=== PATIENT | male | born 1960 | race African-American/Black ===

== ENCOUNTER 2021-12-09 21:01 | Inpatient (IN) | payer MEDICARE, OTHER ==
[~2021-12-09] VITALS: Ht 177.8 cm; Wt 88.5 kg
--- NOTE | 2021-12-09 21:31 | NUR ---
Patient BIB R93 for c/o of leg pain. Patient was just discharge [facility] from [facility] for left BKA.
[2021-12-09] MEDS ORDERED: HYDROMORPHONE 1 MG/1 ML DISP.SYRIN IV ONE (22:00)
[2021-12-09] MEDS ORDERED: ONDANSETRON 4 MG/2 ML VIAL IV ONE (22:00)
[2021-12-09] MEDS ORDERED: HYDROMORPHONE 1 MG/1 ML DISP.SYRIN ONE (22:23)
[2021-12-09] MEDS ORDERED: ONDANSETRON 4 MG/2 ML VIAL ONE (22:23)
[2021-12-09 22:25] LABS: HEMATOCRIT 26.8 % (36.7-47.1); MEAN CORPUSCULAR HEMOGLOBIN 30.1 uug (23.8-33.4); MEAN CORPUSCULAR VOLUME 95.6 fL (73.0-96.2); PLATELET COUNT (AUTO) 238 K/uL (152-348)
[2021-12-09 22:28] LABS: CARBON DIOXIDE 29 mmol/L (21-32); CHLORIDE 98 mmol/L (98-107); CREATININE 4.4 mg/dL (0.6-1.3); GLUCOSE 146 mg/dL (74-106); POTASSIUM 4.3 mmol/L (3.5-5.1); UREA NITROGEN, BLOOD 28 mg/dL (7-18)
[2021-12-09 22:43] LABS: ALANINE AMINOTRANSFERASE 8 U/L (16-63); ALKALINE PHOSPHATASE 155 U/L (50-136); ASPARTATE AMINOTRANSFERASE 11 U/L (15-37); BILIRUBIN,DIRECT 0.3 mg/dL (0.0-0.2); BILIRUBIN,TOTAL 0.5 mg/dL (0.2-1.0); TOTAL PROTEIN, SERUM 7.2 g/dL (6.4-8.2)
--- NOTE | 2021-12-09 22:46 | NUR ---
Back from CT and Xray.
--- NOTE | 2021-12-10 00:07 | NUR ---
[facility] panel call placed, spoke to Yary, she stated she will get a hold of ANDREA Vega for admitting.
--- NOTE | 2021-12-10 00:37 | NUR ---
PATIENT WAS ASKED SEVERAL TIME ABOUT HIS HOME MEDICATIONS BUT IS UNABLE TO RECALL AT THIS TIME.
[2021-12-10] MEDS ORDERED: HYDROMORPHONE 1 MG/1 ML DISP.SYRIN IV ONE (01:00)
[2021-12-10] MEDS ORDERED: HYDROMORPHONE 1 MG/1 ML DISP.SYRIN ONE (01:14)
--- NOTE | 2021-12-10 01:30 | NUR ---
Patient was brought in to the floor via gurney. Required moderate-maximum assist in mobility/transfer from gurney to bed. AAOx3. Denies any pain/discomforts at this time. In no apparent distress. Routine admission care done. Plan of care initiated.
--- NOTE | 2021-12-10 01:45 | NUR ---
Pt. admitted to Med/Surg unit, room 330 under care of ANDREA Vega. Belongs List completed.
[2021-12-10] MEDS ORDERED: MAGNESIUM HYDROXIDE 30 ML LIQUID UDC PO PRN (02:00)
[2021-12-10] MEDS ORDERED: ONDANSETRON 4 MG/2 ML VIAL IV PRN (02:00)
[2021-12-10] MEDS ORDERED: REMEDY ESSENTIAL ZINC PASTE 113 GM TP PRN (02:00)
[2021-12-10] MEDS ORDERED: IV NS 1000 ML 1,000 ML IV PRN (02:00)
[2021-12-10] MEDS ORDERED: ACETAMINOPHEN 325 MG TABLET PO PRN (02:00)
[2021-12-10 02:36] VITALS: BP 98/46
[2021-12-10] MEDS: VANCOMYCIN IV 1,000 MG in IV DEXTROSE 5% 250 ML IV SCH ×2 (03:00→04:30)
[2021-12-10] MEDS: HYDROCODONE/APAP 5-325MG TABLET PO PRN ×2 (03:26→17:36)
[2021-12-10] MEDS ORDERED: CEFEPIME HCL 1 G in IV DEXTROSE 5% 50 ML IV SCH (06:00)
[2021-12-10 06:27] LABS: HEMATOCRIT 28.1 % (36.7-47.1); MEAN CORPUSCULAR HEMOGLOBIN 29.7 uug (23.8-33.4); MEAN CORPUSCULAR VOLUME 97.6 fL (73.0-96.2); PLATELET COUNT (AUTO) 233 K/uL (152-348)
[2021-12-10 06:30] VITALS: BP 97/46
--- NOTE | 2021-12-10 06:35 | NUR ---
TEXT DR. WALKER FOR MRI APPROVAL.
--- NOTE | 2021-12-10 06:36 | NUR ---
MRI APPROVED, NOTIFIED MRI ([facility]) VIA TEXT. I WILL LET THE FLOOR KNOW WHEN TO MAKE TRANSPORTATION ARRANGEMENTS.
[2021-12-10] MEDS: PANTOPRAZOLE SODIUM 40 MG TABLET.DR PO SCH (06:55)
[2021-12-10 07:04] LABS: CREATININE 4.8 mg/dL (0.6-1.3); POTASSIUM 4.5 mmol/L (3.5-5.1)
[2021-12-10 07:11] LABS: BILIRUBIN,TOTAL 0.5 mg/dL (0.2-1.0); MAGNESIUM 2.1 mg/dL (1.8-2.4); PHOSPHOROUS 4.7 mg/dL (2.5-4.9); TOTAL PROTEIN, SERUM 7.3 g/dL (6.4-8.2)
--- NOTE | 2021-12-10 07:35 | NUR ---
Vanco not provided d/t order to wait for Pharmacy to dose. Maxepine not given d/t order for pending pharmacy review. Spoke to Pharmacist Raghavendra, stated he will reschedule.
[2021-12-10] MEDS ORDERED: VANCOMYCIN IV 1,250 MG in IV DEXTROSE 5% 250 ML IV ONE (08:00)
[2021-12-10] MEDS: CEFEPIME HCL 1 G in IV DEXTROSE 5% 50 ML IV SCH (08:22)
[2021-12-10] MEDS: HEPARIN SODIUM,PORCINE 5,000 UNITS/ML VIAL SQ SCH ×2 (08:51→21:35)
[2021-12-10] MEDS: HYDROMORPHONE 1 MG/1 ML DISP.SYRIN IV PRN ×2 (09:38→21:34)
[2021-12-10] MEDS ORDERED: VANCOMYCIN IV 500 MG in IV DEXTROSE 5% 100 ML IV PRN (10:30)
[2021-12-10] MEDS ORDERED: LORAZEPAM 2 MG/1 ML VIAL IV ONE (11:15)
--- NOTE | 2021-12-10 11:31 | NUR ---
pt went for mri via ambulances in stable condition
[2021-12-10 11:55] VITALS: BP 138/67
--- NOTE | 2021-12-10 13:00 | NUR ---
pt received back from [facility] in stable condition they are unravel to do the mri because of pt was unravel to lay down made aware
[2021-12-10 16:25] VITALS: BP 126/65
[2021-12-10 20:00] VITALS: BP 133/50
[2021-12-11 02:32] VITALS: BP 122/72
[2021-12-11] MEDS: HYDROMORPHONE 1 MG/1 ML DISP.SYRIN IV PRN ×5 (02:41→20:53)
[2021-12-11 04:00] VITALS: BP 151/60
[2021-12-11 06:53] VITALS: BP 135/51
[2021-12-11] MEDS: PANTOPRAZOLE SODIUM 40 MG TABLET.DR PO SCH (06:56)
--- NOTE | 2021-12-11 07:34 | NUR ---
PIV 20 cassie on right wrist infiltrated, Dilaudid at 0650 was not given. RN tried twice to insert new line, no success. Patient does not have any PIV at the moment. Report will be provided to AM shift.
[2021-12-11] MEDS: HEPARIN SODIUM,PORCINE 5,000 UNITS/ML VIAL SQ SCH ×2 (09:50→21:26)
[2021-12-11] MEDS: CEFEPIME HCL 1 G in IV DEXTROSE 5% 50 ML IV SCH (10:46)
--- NOTE | 2021-12-11 11:00 | NUR ---
Obtained order for midline insertion due to multiple pIV attempts. Pt has small veins, was able to have wrist 22g inserted but it may not last very long. Pt veins prone to blowing. Midline nurse came in and stated unable to insert midline due to pt having fistula in bilateral arms no matter if one is not being used or does not work. Right fistula does not work, Left fistula working and left chest wall permacath present for dialysis. midline was not inserted.
--- NOTE | 2021-12-11 11:13 | NUR ---
PAGED DR CAST FOR NEPHRO CONSULT
--- NOTE | 2021-12-11 11:20 | NUR ---
SPOKE TO DR CAST AND MADE AWARE ABOUT NEPHRO CONSULT
--- NOTE | 2021-12-11 11:36 | NUR ---
MIDLINE NOT INSERTED, PER TECH PATIENT IS NOT A CANDIDATE SINCE PATIENT HAS A OLD FISTULA FOR DILYSIS ON RIGHT ARM AND WORKING FISTULA ON LEFT ARM.
[2021-12-11 11:57] VITALS: BP 154/67
--- NOTE | 2021-12-11 12:16 | NUR ---
WOUND CARE CONSULT: PT PRESENTS WITH LEFT ABOVE KNEE AMPUTATION WITH DRESSING, LEFT GROIN SURGICAL DRESSING, LEFT BUTTOCK DRY WOUND WITH TENDERNESS AND INDURATION, LEFT THIGH STAGE 3 PRESSURE ULCER, ALL PRESENT ON ADMISSION. SURGICAL CONSULT CALLED TO DR KENYON. PT REFUSED TO HAVE STUMP DRESSING AND LEFT GROIN DRESSING REMOVED. PT IS ABLE TO ASSIST WITH REPOSITIONING IN BED BUT IS UNCOOPERATIVE AT TIMES. MD IN AGREEMENT WITH PLAN OF CARE.
--- NOTE | 2021-12-11 13:14 | NUR ---
Pt is a/o x 3, confused at times. Pt was taken to get MRI at [facility] at 1235. Wound consult completed. prior to transfer. Pt has new IV access on right wrist.
--- NOTE | 2021-12-11 14:11 | NUR ---
Pt is back from MRI. MRI was unsuccessful. Pt was not cooperative with procedure and refused to do again. Pt is receiving hemodialysis. Consent placed in chart.
[2021-12-11 16:32] VITALS: BP 126/62
[2021-12-11] MEDS: HYDROCODONE/APAP 5-325MG TABLET PO PRN ×2 (16:49→23:39)
--- NOTE | 2021-12-11 17:17 | NUR ---
Hemodialysis ended. Vitals 128/72 HR 89, Temp 97.8, rr16. 2L removed via left chest perma cath.
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
[2021-12-11] MEDS ORDERED: ASPI81TA31 PO (19:37)
[2021-12-11] MEDS ORDERED: CARV6.252 PO (19:37)
[2021-12-11] MEDS ORDERED: SEVE800T8 PO (19:37)
[2021-12-11] MEDS ORDERED: PANT40TA49 PO (19:37)
[2021-12-11] MEDS ORDERED: OXYC30TA2 PO (19:37)
[2021-12-11] MEDS ORDERED: GABA-532 PO (19:37)
[2021-12-11] MEDS ORDERED: CINA30TA2 PO (19:37)
[2021-12-11] MEDS ORDERED: ONDA4TAB11 PO (19:37)
[2021-12-11] MEDS ORDERED: ATEN25TA PO (19:37)
[2021-12-11] MEDS ORDERED: DOCU100C36 PO (19:37)
[2021-12-11] MEDS ORDERED: SODI5POW2 PO (19:37)
[2021-12-11] MEDS ORDERED: CYPR4TAB44 PO (19:37)
[2021-12-11] MEDS ORDERED: NIFE-35 PO (19:37)
[2021-12-11] MEDS ORDERED: TRAZ-182 PO (19:37)
[2021-12-11] MEDS ORDERED: CALC667T6 PO (19:37)
[2021-12-11] MEDS ORDERED: ALBU8HFA4 INH (19:37)
[2021-12-11] MEDS ORDERED: METO-295 PO (19:37)
[2021-12-11] MEDS ORDERED: SIME40DR40 PO (19:37)
[2021-12-11 20:00] VITALS: BP 132/63
[2021-12-11] MEDS ORDERED: EPOETIN ALFA-EPBX 10,000 UNIT/ML VIAL SQ ONE (20:00)
--- NOTE | 2021-12-11 20:53 | NUR ---
Patient in bed alert to himself. Stated "which hotel am I At".Re-oriented to place and time.Patient screaming in pain. IV re- inserted on RT FA 20g with blood return.Dilaudid IVP given.Left AKA,amputations of the toes of his right foot ,prabhjot noted on Rt groin.No bleeding noted.Snacks provided.Perma cath on left upper chest with dressing in place.Safety measures in place.Will continue to monitor.
[2021-12-12] MEDS ORDERED: LORAZEPAM 2 MG/1 ML VIAL IV ONE (00:15)
--- NOTE | 2021-12-12 01:16 | NUR ---
Patient trying to get of bed. Agitated and restless.Re-assurance rendered.Unable to re-direct. Stacy Branham notified with new order received noted and carried out.Ativan IVP x1 given.Will continue to monitor.
[2021-12-12 04:15] VITALS: BP 106/60
[2021-12-12] MEDS: HYDROMORPHONE 1 MG/1 ML DISP.SYRIN IV PRN ×2 (05:46→10:39)
[2021-12-12] MEDS: PANTOPRAZOLE SODIUM 40 MG TABLET.DR PO SCH (06:01)
--- NOTE | 2021-12-12 06:05 | NUR ---
Patient awake and confused. Unable to follow commands.Started screaming c/o pain and extremely agitated, getting out of bed .High risk for fall.Place patient to luisito-chair with 4 person assists.All needs anticipated and met accordingly. Will endorse to oncoming shift.
--- NOTE | 2021-12-12 07:30 | NUR ---
Received patient in bed confused. Pt is yelling and screaming, banging on gerichair tray table. Patient is non compliant and using foul language at staff. Safety precautions are in place. Will continue to monitor.
[2021-12-12] MEDS: CEFEPIME HCL 1 G in IV DEXTROSE 5% 50 ML IV SCH (08:27)
[2021-12-12] MEDS: HEPARIN SODIUM,PORCINE 5,000 UNITS/ML VIAL SQ SCH ×2 (08:30→21:21)
[2021-12-12 10:57] VITALS: BP 146/68
[2021-12-12 11:08] LABS: HEPATITIS B SURFACE AG Negative (Negative)
[2021-12-12] MEDS: NICOTINE 14 MG/24HR PATCH TD SCH (12:56)
[2021-12-12] MEDS: HYDROMORPHONE 1 MG/1 ML DISP.SYRIN IM PRN ×2 (15:00→21:20)
[2021-12-12 15:12] VITALS: BP 165/78
--- NOTE | 2021-12-12 16:30 | NUR ---
BRODY Hartman at bedside with doing bebridement. Pt tolerated procedure well.
[2021-12-12] MEDS ORDERED: SILVER NITRATE APPLICATOR STICK EACH TP ONE (17:00)
[2021-12-12] MEDS ORDERED: LIDOCAINE 1%-EPI 1:200,000 MPF 30 ML VIAL IJ ONE (17:00)
--- NOTE | 2021-12-12 17:32 | NUR ---
BRODY Hartman will use for a procedure with the patient on Tuesday. Med placed in patient's cassette.
--- NOTE | 2021-12-12 18:36 | NUR ---
Came out of pt room and other nurse states patient was found on the floor by CATHOLIC PRIEST. Pick patient up off the floor and placed in bed. Assessment shows pt has no sign of injury. Moved patient closer to the nurses station, notified MD and placed order for restraint.
--- NOTE | 2021-12-12 18:44 | NUR ---
Pt has been combative and non compliant throughout shift. Patient keep stating he wants to go home by is confused and unable to make that decision at this time. He stated that his name is KAMAR and he is taking to people that are in their and thinks others are watching home. Will endorse to oncoming nurse.
[2021-12-12 20:00] VITALS: BP 110/50
--- NOTE | 2021-12-12 21:20 | NUR ---
Dilaudid 1mg prn given to pt for pain on his left stump. Pt tolerated it well.
--- NOTE | 2021-12-12 22:30 | NUR ---
Pt dilaudid effective. Pt said it help him but still feel some little pain. Safety and comfort provided. Will continue to monitor.
--- NOTE | 2021-12-12 23:30 | NUR ---
Pt in no acute distress. Vital signs within normal limit. hands off report given to Yajaira CONNELL.
[2021-12-13] MEDS: SODIUM HYPOCHLORITE 0.25% (HALF STRENGTH) 480 ML BOTTLE TOP SCH ×2 (00:15→09:45)
[2021-12-13] MEDS: THERAHONEY GEL 1.5 OZ TUBE TOP SCH ×2 (00:16→09:45)
[2021-12-13] MEDS: HYDROMORPHONE 1 MG/1 ML DISP.SYRIN IM PRN ×3 (02:13→22:12)
--- NOTE | 2021-12-13 02:14 | NUR ---
MEDICATED FOR LEFT RESIDUAL LIMB PAIN. REPOSITION FOR COMFORT. NEEDS ATTENDED TO, KEPT WARM AND CLEAN.
[2021-12-13 04:03] VITALS: BP 115/50
--- NOTE | 2021-12-13 06:41 | NUR ---
SLEPT ON AND OFF, REFUSED BLOOD DRAW,AND MORNING MED.ENDORSED TO AM NURSE IN FAIR CONDITION.
[2021-12-13] MEDS: PANTOPRAZOLE SODIUM 40 MG TABLET.DR PO SCH (07:00)
--- NOTE | 2021-12-13 07:45 | NUR ---
Received in sitting in bed awake and verbally responsive. Denies sob. Has his gown off and refusing to put it on. Left chest permacath with dry dressing intact. No acute distress. Bed low and locked siderails up x2. Call light and personal belongings in reach. Will cont to monitor.
[2021-12-13] MEDS: HEPARIN SODIUM,PORCINE 5,000 UNITS/ML VIAL SQ SCH ×2 (08:34→21:21)
[2021-12-13] MEDS: NICOTINE 14 MG/24HR PATCH TD SCH (08:34)
--- NOTE | 2021-12-13 08:45 | NUR ---
Agitated and states he wants to be discharged. Informed risks of not getting tx and benefit of cont with plan of care and pt somewhat calmed down and continued eating. Refused to be inserted iv at this time. will try again later.
[2021-12-13] MEDS: CEFEPIME HCL 1 G in IV DEXTROSE 5% 50 ML IV SCH (10:13)
--- NOTE | 2021-12-13 10:32 | NUR ---
charge nurse able to reinsert 22g iv on lfa tolerated. iv medication administered as ordered.
[2021-12-13] MEDS: HYDROCODONE/APAP 5-325MG TABLET PO PRN ×3 (11:24→19:44)
[2021-12-13 12:57] VITALS: BP 158/78
[2021-12-13 16:17] VITALS: BP 155/70
--- NOTE | 2021-12-13 16:30 | NUR ---
baton twirler unable to draw blood the first time and then pt refused a second try. he did agree to have her come back later to try again. endorsed.
--- NOTE | 2021-12-13 18:00 | NUR ---
Dr. Barrett notified that patient's meds need to be reconciled. pharmacy also aware.
--- NOTE | 2021-12-13 18:30 | NUR ---
pt resting. no pain or distress noted. had pizza delivered earlier so didn't eat much dinner. appears comfortable. needs attended.
[2021-12-13 20:00] VITALS: BP 145/71
--- NOTE | 2021-12-13 20:00 | NUR ---
Patient refused vital signs taken, yells and screams, cont on pain management. Patient left AKA with prabhjot, draining with serosangeneous in small amount, kept it clean and dry. Patient has episode of yellings and screaming, gave pain meds as soon as possible, when its due, cont to monitor.
[2021-12-13] MEDS ORDERED: SIMETHICONE 40 MG/0.6 ML, 30ML BOTTLE PO SCH (20:45)
[2021-12-13] MEDS ORDERED: ALBUTEROL SULFATE 8 GM HFA.AER.AD IH PRN (20:45)
[2021-12-14] MEDS: HYDROCODONE/APAP 5-325MG TABLET PO PRN ×2 (00:30→13:26)
[2021-12-14] MEDS: HYDROMORPHONE 1 MG/1 ML DISP.SYRIN IM PRN ×5 (02:15→20:06)
[2021-12-14 04:44] VITALS: BP 160/89
[2021-12-14] MEDS: PANTOPRAZOLE SODIUM 40 MG TABLET.DR PO SCH (06:05)
[2021-12-14] MEDS: CARVEDILOL 6.25 MG TABLET PO SCH ×2 (06:06→16:10)
[2021-12-14] MEDS ORDERED: PANTOPRAZOLE SODIUM 40 MG TABLET.DR PO SCH (07:00)
[2021-12-14 07:23] LABS: POTASSIUM 5.4 mmol/L (3.5-5.1); VANCOMYCIN,RANDOM 19.7 ug/mL (18.0-26.0)
[2021-12-14 07:25] LABS: CREATININE 7.5 mg/dL (0.6-1.3)
--- NOTE | 2021-12-14 07:26 | NUR ---
SEEN AND EXAMINED BY DR. GERARD WITH NEW ATIVAN ORDERS FOR MRI PROCEDURE NOTED.
[2021-12-14] MEDS ORDERED: LORAZEPAM 2 MG/1 ML VIAL IV ONE (07:30)
[2021-12-14] MEDS ORDERED: LORAZEPAM 2 MG/1 ML VIAL IV PRN (07:30)
[2021-12-14 07:40] LABS: HEMATOCRIT 21.7 % (36.7-47.1); MEAN CORPUSCULAR HEMOGLOBIN 30.9 uug (23.8-33.4); MEAN CORPUSCULAR VOLUME 95.7 fL (73.0-96.2); PLATELET COUNT (AUTO) 197 K/uL (152-348)
[2021-12-14] MEDS: SEVELAMER CARBONATE 800 MG TABLET PO SCH ×3 (08:49→16:11)
[2021-12-14] MEDS: ASPIRIN 81 MG TAB.CHEW PO SCH (08:49)
[2021-12-14] MEDS: GABAPENTIN 100 MG CAPSULE PO SCH ×3 (08:49→16:11)
[2021-12-14] MEDS: NICOTINE 14 MG/24HR PATCH TD SCH (08:49)
[2021-12-14] MEDS: CINACALCET HCL 30 MG TABLET PO SCH ×3 (08:50→18:38)
[2021-12-14] MEDS: HEPARIN SODIUM,PORCINE 5,000 UNITS/ML VIAL SQ SCH ×2 (08:50→20:07)
[2021-12-14] MEDS: METOCLOPRAMIDE HCL 10 MG TABLET PO SCH ×3 (08:50→16:11)
[2021-12-14] MEDS: CALCIUM ACETATE 667 MG CAP/TAB PO SCH ×3 (08:50→17:08)
[2021-12-14] MEDS: DOCUSATE SODIUM 100 MG CAPSULE PO SCH (08:52)
[2021-12-14] MEDS: CEFEPIME HCL 1 G in IV DEXTROSE 5% 50 ML IV SCH (09:00)
[2021-12-14] MEDS ORDERED: Medication Not On Formulary EA (Oxycodone Hcl 1 TAB) PO SCH (09:00)
[2021-12-14] MEDS: NIFEdipine XL 30 MG TABSR PO SCH (09:00)
[2021-12-14] MEDS: ATENOLOL 25 MG TABLET PO SCH (09:00)
[2021-12-14] MEDS: THERAHONEY GEL 1.5 OZ TUBE TOP SCH (09:02)
[2021-12-14] MEDS: SODIUM HYPOCHLORITE 0.25% (HALF STRENGTH) 480 ML BOTTLE TOP SCH (09:02)
--- NOTE | 2021-12-14 09:44 | NUR ---
bp meds held this morning patient is having dialysis today bp 126/51 hr 79. aware
--- NOTE | 2021-12-14 10:42 | NUR ---
received call for critical lab hgb 7.[address] zendejas with order to repeat hgb in 4 hrs.
[2021-12-14] MEDS ORDERED: SIME80TA16 PO (10:43)
[2021-12-14] MEDS ORDERED: ALBUTEROL SULFATE 2.5 MG/3 ML NEBU NEB PRN (11:00)
[2021-12-14] MEDS ORDERED: SIMETHICONE 80 MG TAB.CHEW PO PRN (11:00)
[2021-12-14 11:38] VITALS: BP 118/65
--- NOTE | 2021-12-14 11:43 | NUR ---
DIALYSIS NURSE HERE TO DIALYZE THE PATIENT.
--- NOTE | 2021-12-14 12:18 | NUR ---
pt still thinking whether he wants to do the mri. dr. zendejas explained risks/benefits to the patient this morning. still doesn't want at this time.
[2021-12-14 14:37] LABS: HEMATOCRIT 24.3 % (36.7-47.1)
--- NOTE | 2021-12-14 14:56 | NUR ---
patient finished hemodialysis session output 2 liters. no acute distress.
--- NOTE | 2021-12-14 15:17 | NUR ---
spoke with noman and updated on condition no complaints and was appreciative.
[2021-12-14] MEDS ORDERED: VANCOMYCIN IV 500 MG in IV DEXTROSE 5% 100 ML IV ONE (16:00)
[2021-12-14 16:30] VITALS: BP 107/88
[2021-12-14] MEDS: TRAZODONE 50 MG TABLET PO SCH (18:38)
--- NOTE | 2021-12-14 18:49 | NUR ---
awake and eating. no acute distress. safety and comfort provided. needs attended.
--- NOTE | 2021-12-14 19:30 | NUR ---
Patient alert oriented, no sob no chest pain, cont on pain management on left BKA amputation wound. Patient BKA with prabhjot with serosangenous drainage in small amount, site clean clean and dry. Patient has no pulling of tubes, climbs oob now, pretty much aware of safety issue, no mittens in place. Patient close to station for close monitoring and for faster service.
[2021-12-14 20:03] VITALS: BP 123/54
[2021-12-15] MEDS: HYDROMORPHONE 1 MG/1 ML DISP.SYRIN IM PRN ×5 (00:17→22:38)
[2021-12-15 04:03] VITALS: BP 125/60
[2021-12-15] MEDS: PANTOPRAZOLE SODIUM 40 MG TABLET.DR PO SCH (05:35)
[2021-12-15 06:42] LABS: HEMATOCRIT 22.7 % (36.7-47.1); MEAN CORPUSCULAR HEMOGLOBIN 30.5 uug (23.8-33.4); MEAN CORPUSCULAR VOLUME 95.5 fL (73.0-96.2); PLATELET COUNT (AUTO) 204 K/uL (152-348)
--- NOTE | 2021-12-15 07:30 | NUR ---
Received patient in bed awake, alert and oriented times 4. No sign of distress noted at this time. Pt is on fall precautions. Safety precaution in place. Will continue to monitor.
--- NOTE | 2021-12-15 07:51 | NUR ---
Patient hgh 7.2, notify DR Rodriguez, endorse to next shift.
[2021-12-15] MEDS ORDERED: EPOETIN ALFA 20,000 UNIT/ML ML SQ ONE (08:45)
[2021-12-15] MEDS ORDERED: EPOETIN ALFA-EPBX 20,000 UNIT/ML VIAL SQ ONE (09:15)
[2021-12-15] MEDS: ASPIRIN 81 MG TAB.CHEW PO SCH (09:27)
[2021-12-15] MEDS: METOCLOPRAMIDE HCL 10 MG TABLET PO SCH ×3 (09:28→17:50)
[2021-12-15] MEDS: CALCIUM ACETATE 667 MG CAP/TAB PO SCH ×3 (09:28→17:50)
[2021-12-15] MEDS: SEVELAMER CARBONATE 800 MG TABLET PO SCH ×3 (09:28→17:50)
[2021-12-15] MEDS: GABAPENTIN 100 MG CAPSULE PO SCH ×3 (09:29→17:50)
[2021-12-15] MEDS: CEFEPIME HCL 1 G in IV DEXTROSE 5% 50 ML IV SCH (09:29)
[2021-12-15] MEDS: DOCUSATE SODIUM 100 MG CAPSULE PO SCH (09:29)
[2021-12-15] MEDS: NICOTINE 14 MG/24HR PATCH TD SCH (09:33)
[2021-12-15] MEDS: ATENOLOL 25 MG TABLET PO SCH (09:33)
[2021-12-15] MEDS: NIFEdipine XL 30 MG TABSR PO SCH (09:33)
[2021-12-15] MEDS: CARVEDILOL 6.25 MG TABLET PO SCH ×2 (09:33→17:55)
[2021-12-15] MEDS: SODIUM HYPOCHLORITE 0.25% (HALF STRENGTH) 480 ML BOTTLE TOP SCH (09:34)
[2021-12-15] MEDS: THERAHONEY GEL 1.5 OZ TUBE TOP SCH (09:34)
[2021-12-15] MEDS: CINACALCET HCL 30 MG TABLET PO SCH ×3 (09:47→17:50)
[2021-12-15 11:32] VITALS: BP 122/61
[2021-12-15 15:40] VITALS: BP 92/50
[2021-12-15] MEDS ORDERED: LORAZEPAM 2 MG/1 ML VIAL IV PRN (16:00)
--- NOTE | 2021-12-15 17:00 | NUR ---
MRI scheduled for Saturday 12/16 at 0900 at [facility]. Pickup is scheduled for 0830
[2021-12-15] MEDS: TRAZODONE 50 MG TABLET PO SCH (17:50)
[2021-12-15] MEDS: ARGININE/GLUTAMINE/CALCIUM BMB 1 EACH POWD.PACK PO SCH (17:51)
[2021-12-16] VITALS (7 sets, daily range): BP systolic 87–122; BP diastolic 53–88
[2021-12-16] MEDS: HYDROMORPHONE 1 MG/1 ML DISP.SYRIN IM PRN ×3 (03:09→22:41)
[2021-12-16] MEDS: PANTOPRAZOLE SODIUM 40 MG TABLET.DR PO SCH (06:01)
--- NOTE | 2021-12-16 06:37 | NUR ---
Patient alert oriented, no sob no chest pain, cont on pain management S/P left BKA, tx done with small serosangeneous drainage, no odor, left chest perma cath dressing intact, anuric and had BM last night, call light within reach.
[2021-12-16 07:21] LABS: HEMATOCRIT 21.1 % (36.7-47.1); MEAN CORPUSCULAR HEMOGLOBIN 30.9 uug (23.8-33.4); MEAN CORPUSCULAR VOLUME 96.6 fL (73.0-96.2); PLATELET COUNT (AUTO) 200 K/uL (152-348)
[2021-12-16 07:25] LABS: BILIRUBIN,TOTAL 0.4 mg/dL (0.2-1.0); CREATININE 7.1 mg/dL (0.6-1.3); PHOSPHOROUS 3.2 mg/dL (2.5-4.9); POTASSIUM 5.2 mmol/L (3.5-5.1); TOTAL PROTEIN, SERUM 6.7 g/dL (6.4-8.2)
--- NOTE | 2021-12-16 07:30 | NUR ---
RECEIVED SITTING IN BED AWAKE AND VERBALLY RESPONSIVE IN SOMEWHAT PLEASANT MOOD. DENIES SOB OR PAIN. NO SIGNS OF INFILTRATION ON IV SITE. SAFETY AND COMFORT MAINTAINED. CALL LIGHT IN REACH. PT ASHLEE SNOWDEN WILL BE PICKED UP 0930 FOR MRI AT [facility].
[2021-12-16] MEDS: CEFEPIME HCL 1 G in IV DEXTROSE 5% 50 ML IV SCH (08:31)
[2021-12-16] MEDS: ASPIRIN 81 MG TAB.CHEW PO SCH (08:32)
[2021-12-16] MEDS: GABAPENTIN 100 MG CAPSULE PO SCH ×3 (08:32→17:25)
[2021-12-16] MEDS: CINACALCET HCL 30 MG TABLET PO SCH ×3 (08:32→17:25)
[2021-12-16] MEDS: SEVELAMER CARBONATE 800 MG TABLET PO SCH ×3 (08:32→17:25)
[2021-12-16] MEDS: CALCIUM ACETATE 667 MG CAP/TAB PO SCH ×3 (08:32→17:25)
[2021-12-16] MEDS: DOCUSATE SODIUM 100 MG CAPSULE PO SCH (08:33)
[2021-12-16] MEDS: ARGININE/GLUTAMINE/CALCIUM BMB 1 EACH POWD.PACK PO SCH ×2 (08:33→17:00)
[2021-12-16] MEDS: NICOTINE 14 MG/24HR PATCH TD SCH (08:34)
[2021-12-16] MEDS: ATENOLOL 25 MG TABLET PO SCH (08:34)
[2021-12-16] MEDS: METOCLOPRAMIDE HCL 10 MG TABLET PO SCH ×3 (08:34→17:00)
[2021-12-16] MEDS: CARVEDILOL 6.25 MG TABLET PO SCH ×2 (08:34→17:00)
[2021-12-16] MEDS: NIFEdipine XL 30 MG TABSR PO SCH (08:34)
[2021-12-16] MEDS: SODIUM HYPOCHLORITE 0.25% (HALF STRENGTH) 480 ML BOTTLE TOP SCH (08:35)
[2021-12-16] MEDS: THERAHONEY GEL 1.5 OZ TUBE TOP SCH (08:35)
[2021-12-16] MEDS ORDERED: LORAZEPAM 2 MG/1 ML VIAL IV ONE (09:15)
--- NOTE | 2021-12-16 09:44 | NUR ---
[facility] HERE TO CLERK CARRIER THE PATIENT FOR SCHEDULED MRI AT [facility]. REPORT GIVEN. ATIVAN 0.5MG GIVEN ORDERED. NO ACUTE DISTRESS.
--- NOTE | 2021-12-16 10:33 | NUR ---
RECEIVED ORDER FROM DR. REYNOLDS TO GIVE 1 UNIT PRBC
--- NOTE | 2021-12-16 12:30 | NUR ---
CAME BACK VIA GURNEY FROM SCHEDULED MRI ASLEEP NO SOB NOTED. VS 93/34 HR 74 O2 SAT 94% RA.
--- NOTE | 2021-12-16 12:45 | NUR ---
MID LEVEL GAME DESIGNER HERE TO DIALYZE THE PATIENT.
--- NOTE | 2021-12-16 13:23 | NUR ---
SPOKE TO MATIAS AND UPDATED ON CONDITION. CONSENT FOR BLOOD TRANSFUSION GIVEN.
[2021-12-16] MEDS ORDERED: MIDODRINE HCL 5 MG TABLET PO PRN (13:45)
--- NOTE | 2021-12-16 15:53 | NUR ---
DIALYSIS DONE. OUTPUT 500 ML. PATIENT TOLERATED Addendum: 12/16/21 at 1601 by LISE PISANO RN PT S/P 1 PRBC TRANSFUSED ORDERED. NO ACUTE DISTRESS. NO S/SX OF ALLERGIC OR ADVERSE REACTIONS NOTED. WILL CONT TO MONITOR.
[2021-12-16] MEDS ORDERED: VANCOMYCIN IV 500 MG in IV DEXTROSE 5% 100 ML IV ONE (17:00)
[2021-12-16] MEDS: TRAZODONE 50 MG TABLET PO SCH (17:34)
--- NOTE | 2021-12-16 18:44 | NUR ---
RESTING COMFORTABLY. NO SOB OR PAIN. NEEDS ATTENDED. SAFETY MAINTAINED. CALL LIGHT IN REACH.
--- NOTE | 2021-12-17 01:00 | NUR ---
Patient is restless and c/o severe pain to left stump. Patient is alert to self and place with occasional confusion and inappropriate responses to questions. Able to redirect, refuses other pain medication besides Dilaudid IM. Patient wants to stay sitting up in bed with right leg hanging, explained it is unsafe and patient allowed this RN to help him reposition in bed.
[2021-12-17] MEDS: HYDROMORPHONE 1 MG/1 ML DISP.SYRIN IM PRN ×5 (02:49→20:53)
[2021-12-17 04:00] VITALS: BP 128/56
--- NOTE | 2021-12-17 05:25 | NUR ---
Patient slept seldom. Frequent safety checks made by staff. Pain managed by Dilaudid as needed, patient continues to refuse other pain medications. Dressing changed to left AKA stump. Noted with serosanguineous drainage. All needs attended, safety measures applied.
[2021-12-17 06:12] LABS: HEMATOCRIT 25.8 % (36.7-47.1); MEAN CORPUSCULAR HEMOGLOBIN 30.2 uug (23.8-33.4); MEAN CORPUSCULAR VOLUME 95.8 fL (73.0-96.2); PLATELET COUNT (AUTO) 188 K/uL (152-348)
[2021-12-17] MEDS: PANTOPRAZOLE SODIUM 40 MG TABLET.DR PO SCH (06:15)
[2021-12-17 06:36] LABS: CREATININE 4.7 mg/dL (0.6-1.3); MAGNESIUM 2.2 mg/dL (1.8-2.4); PHOSPHOROUS 2.9 mg/dL (2.5-4.9); POTASSIUM 4.6 mmol/L (3.5-5.1)
[2021-12-17] MEDS: CEFEPIME HCL 1 G in IV DEXTROSE 5% 50 ML IV SCH (08:31)
[2021-12-17] MEDS: ASPIRIN 81 MG TAB.CHEW PO SCH (08:41)
[2021-12-17] MEDS: CALCIUM ACETATE 667 MG CAP/TAB PO SCH ×3 (08:41→17:02)
[2021-12-17] MEDS: METOCLOPRAMIDE HCL 10 MG TABLET PO SCH ×3 (08:42→16:49)
[2021-12-17] MEDS: GABAPENTIN 100 MG CAPSULE PO SCH ×3 (08:42→16:47)
[2021-12-17] MEDS: SEVELAMER CARBONATE 800 MG TABLET PO SCH ×3 (08:43→16:46)
[2021-12-17] MEDS: DOCUSATE SODIUM 100 MG CAPSULE PO SCH (08:43)
[2021-12-17] MEDS: NIFEdipine XL 30 MG TABSR PO SCH (08:43)
[2021-12-17] MEDS: CINACALCET HCL 30 MG TABLET PO SCH ×3 (08:43→16:49)
[2021-12-17] MEDS: ATENOLOL 25 MG TABLET PO SCH (08:44)
[2021-12-17] MEDS: CARVEDILOL 6.25 MG TABLET PO SCH ×2 (08:44→16:49)
[2021-12-17] MEDS: THERAHONEY GEL 1.5 OZ TUBE TOP SCH (08:45)
[2021-12-17] MEDS: NICOTINE 14 MG/24HR PATCH TD SCH (08:45)
[2021-12-17] MEDS: ARGININE/GLUTAMINE/CALCIUM BMB 1 EACH POWD.PACK PO SCH ×2 (08:45→17:03)
[2021-12-17] MEDS: SODIUM HYPOCHLORITE 0.25% (HALF STRENGTH) 480 ML BOTTLE TOP SCH (08:46)
[2021-12-17] MEDS ORDERED: EPOETIN ALFA-EPBX 10,000 UNIT/ML VIAL SQ ONE (10:00)
[2021-12-17 12:00] VITALS: BP 107/48
--- NOTE | 2021-12-17 15:37 | NUR ---
patient seen by imani vallecillo
[2021-12-17 16:00] VITALS: BP 125/63
[2021-12-17] MEDS: TRAZODONE 50 MG TABLET PO SCH (17:02)
[2021-12-17 20:00] VITALS: BP 135/60
[2021-12-18] MEDS: HYDROMORPHONE 1 MG/1 ML DISP.SYRIN IM PRN ×4 (00:57→13:08)
[2021-12-18 04:00] VITALS: BP 130/65
[2021-12-18] MEDS: PANTOPRAZOLE SODIUM 40 MG TABLET.DR PO SCH (06:02)
--- NOTE | 2021-12-18 06:33 | NUR ---
Patient remained stable. frequent visual checks done. skin intact, no bleeding identified. Patient refused blood draw in am, will endorse to the next shift. PRN pain medication given as ordered. safety measures maintained. all due meds given. all needs attended. kept call light within reach. no other concern identified. will endorse to the next shift for continuity of care.
[2021-12-18] MEDS: DOCUSATE SODIUM 100 MG CAPSULE PO SCH (08:13)
[2021-12-18] MEDS: CINACALCET HCL 30 MG TABLET PO SCH ×3 (08:13→17:19)
[2021-12-18] MEDS: METOCLOPRAMIDE HCL 10 MG TABLET PO SCH ×3 (08:13→17:19)
[2021-12-18] MEDS: GABAPENTIN 100 MG CAPSULE PO SCH ×3 (08:13→17:17)
[2021-12-18] MEDS: ASPIRIN 81 MG TAB.CHEW PO SCH (08:13)
[2021-12-18] MEDS: CALCIUM ACETATE 667 MG CAP/TAB PO SCH ×3 (08:13→17:19)
[2021-12-18] MEDS: SEVELAMER CARBONATE 800 MG TABLET PO SCH ×3 (08:13→17:19)
[2021-12-18] MEDS: CARVEDILOL 6.25 MG TABLET PO SCH ×2 (08:15→17:19)
[2021-12-18] MEDS: NIFEdipine XL 30 MG TABSR PO SCH (08:16)
[2021-12-18] MEDS: NICOTINE 14 MG/24HR PATCH TD SCH (08:18)
[2021-12-18] MEDS: ATENOLOL 25 MG TABLET PO SCH (08:18)
[2021-12-18] MEDS: THERAHONEY GEL 1.5 OZ TUBE TOP SCH (08:19)
[2021-12-18] MEDS: CEFEPIME HCL 1 G in IV DEXTROSE 5% 50 ML IV SCH (08:19)
[2021-12-18] MEDS: SODIUM HYPOCHLORITE 0.25% (HALF STRENGTH) 480 ML BOTTLE TOP SCH (08:22)
[2021-12-18] MEDS: ARGININE/GLUTAMINE/CALCIUM BMB 1 EACH POWD.PACK PO SCH ×2 (08:22→17:00)
[2021-12-18 11:20] LABS: HEMATOCRIT 23.9 % (36.7-47.1); MEAN CORPUSCULAR HEMOGLOBIN 30.5 uug (23.8-33.4); MEAN CORPUSCULAR VOLUME 94.9 fL (73.0-96.2); PLATELET COUNT (AUTO) 202 K/uL (152-348)
[2021-12-18 11:26] VITALS: BP 150/85
[2021-12-18 11:34] LABS: BILIRUBIN,TOTAL 0.4 mg/dL (0.2-1.0); CREATININE 4.2 mg/dL (0.6-1.3); POTASSIUM 4.3 mmol/L (3.5-5.1); VANCOMYCIN,RANDOM 16.7 ug/mL (18.0-26.0)
[2021-12-18] MEDS ORDERED: VANCOMYCIN IV 500 MG in IV DEXTROSE 5% 100 ML IV ONE (13:15)
[2021-12-18] MEDS ORDERED: HYDROMORPHONE 1 MG/1 ML DISP.SYRIN IV PRN (15:33)
[2021-12-18 16:04] VITALS: BP 146/71
[2021-12-18] MEDS ORDERED: ACET325T53 PO (16:27)
[2021-12-18] MEDS ORDERED: MENT113O TP (16:27)
[2021-12-18] MEDS ORDERED: ONDA4TAB5 PO (16:27)
[2021-12-18] MEDS ORDERED: SODI480S2 TOP (16:27)
[2021-12-18] MEDS ORDERED: POLY17PO4 PO (16:27)
[2021-12-18] MEDS ORDERED: HYDR-3972 PO (16:27)
[2021-12-18] MEDS ORDERED: NICO-671 TD (16:27)
[2021-12-18] MEDS ORDERED: ALBU1.257 NEB (16:27)
[2021-12-18] MEDS ORDERED: GABA-532 PO (16:27)
[2021-12-18] MEDS ORDERED: ACID1TAB4 PO (16:29)
[2021-12-18] MEDS ORDERED: SODIUM PHOSPHATE MM 7.5 MMOL in IV NORMAL SALINE 100 ML IV ONE (16:30)
--- NOTE | 2021-12-18 17:00 | NUR ---
attempted to take pictures for discharge patient refused x3.
--- NOTE | 2021-12-18 17:00 | NUR ---
patient with new discharge order, pickup is at 1800, discharge information reviewed with patient all paperwork signed. reminded patient to continue with current medication regimen and to call 911 or return to nearest er if symptoms worsen. inventory list completed and signed.
[2021-12-18 17:19] VITALS: BP 136/81
[2021-12-18] MEDS: TRAZODONE 50 MG TABLET PO SCH (17:19)
--- NOTE | 2021-12-18 17:30 | NUR ---
called country serg bermeo report given to chelsie CONNELL all questions answered.
--- NOTE | 2021-12-18 18:24 | NUR ---
REPORT GIVEN TO BROOCH MAKER NOVELTY ALL QUESTIONS ANSWERED.
--- NOTE | 2021-12-18 18:26 | NUR ---
PATIENT PICKED UP BY AMBULANCE, UPON DISCHARGE PATIENT STABLE, V/S WNL.
--- NOTE | 2021-12-21 13:24 | NUR ---
SW Facility Contact JULIENNE spoke to Radha ([phone]) social work msw at [facility] who wanted to express concerns of hospital discharging patient without providing them with DC paperwork nor informing them of the facility patient was discharged to. JULIENNE asked Radha if she would like patient case manager to contact her to discuss her concerns. Radha stated she did not want to speak with him because he was uncooperative when they spoke. Radha asked if JULIENNE can get patient case manager to fax over a DC summary to fax number [phone]. JULIENNE called patient case manager, Rik, and informed him about Radha needing DC summary. Rik stated that he would follow up.
== END 2021-12-18 18:29 | DRG 853 ==
LOC: ER 21:17 → MEDSURG3 12-10 01:31
PROVIDERS: ADMIT Registered Nurse; ATTEND Family Medicine
PROC: 30233N1 Transfusion of Nonautologous Red Blood Cells into Peripheral Vein, Percutaneous Approach (ICD-10-PCS; 2021-12-10)
PROC: 0KB Muscles, Excision (ICD-10-PCS; principal; 2021-12-12)
PROC: 5A1D70Z Performance of Urinary Filtration, Intermittent, Less than 6 Hours Per Day (ICD-10-PCS; 2021-12-14)
DX: A41.9 Sepsis, unspecified organism (principal); E43 Unspecified severe protein-calorie malnutrition; N18.6 End stage renal disease; G92.8 Other toxic encephalopathy; T81.31XA Disruption of external operation (surgical) wound, not elsewhere classified, initial encounter; L03.312 Cellulitis of back [any part except buttock and flank]; I13.11 Hypertensive heart and chronic kidney disease without heart failure, with stage 5 chronic kidney disease, or end stage renal disease; I96 Gangrene, not elsewhere classified; L03.116 Cellulitis of left lower limb; E11.51 Type 2 diabetes mellitus with diabetic peripheral angiopathy without gangrene; E11.22 Type 2 diabetes mellitus with diabetic chronic kidney disease; Z99.2 Dependence on renal dialysis; Z89.512 Acquired absence of left leg below knee; Z89.431 Acquired absence of right foot; E11.65 Type 2 diabetes mellitus with hyperglycemia; L89.150 Pressure ulcer of sacral region, unstageable; F17.210 Nicotine dependence, cigarettes, uncomplicated; M51.46 Schmorl's nodes, lumbar region; M48.061 Spinal stenosis, lumbar region without neurogenic claudication; M51.26 Other intervertebral disc displacement, lumbar region; M85.80 Other specified disorders of bone density and structure, unspecified site; M47.815 Spondylosis without myelopathy or radiculopathy, thoracolumbar region; M25.78 Osteophyte, vertebrae; Z89.612 Acquired absence of left leg above knee; Z83.3 Family history of diabetes mellitus; Z79.4 Long term (current) use of insulin; I25.10 Atherosclerotic heart disease of native coronary artery without angina pectoris; G89.29 Other chronic pain; E87.5 Hyperkalemia; D63.8 Anemia in other chronic diseases classified elsewhere; R65.20 Severe sepsis without septic shock; S71.102D Unspecified open wound, left thigh, subsequent encounter; X58.XXXD Exposure to other specified factors, subsequent encounter
CPT/HCPCS: 36415; 70030-TC; 71045; 72131; 72148; 76770; 83550; 83605; 83735; 84100; 84484; 85018; 85025; 85651; 85730; 86140; 86706; 86850; 86900; 86901; 86920; 87040; 87070; 87077; 87340; 90937; 93005; 97161; A4217; A4663; A6209; G0378; J0692; J0885; J1170; J1644; J2060; J2405; J3370; J3490; J7030; J7040; J7050; J7060; J8597; P9016